=== PATIENT | female | born 1970 | race Caucasian/White ===

== ENCOUNTER 2018-12-16 04:44 | Observation (INO) | payer OTHER ==
[~2018-12-16] VITALS: Ht 152.4 cm; Wt 139.0 kg
[2018-12-16 05:20] LABS: BASOPHILS ABSOLUTE AUTO 0.03 K/mm3 (0.00-0.23); BASOPHILS PERCENT AUTO 0 % (0-2); EOSINOPHILS PERCENT AUTO 0 % (0-6); Hematocrit 42.4 % (33.0-51.0); Hemoglobin 14.2 g/dL (11.5-16.0); IMMATURE GRAN ABSOLUTE AUTO 0.11 K/mm3 (0.00-0.10); IMMATURE GRAN PERCENT AUTO 1 % (0-1); LYMPHOCYTES ABSOLUTE AUTO 1.29 K/mm3 (0.84-5.20); LYMPHOCYTES PERCENT AUTO 9 % (21-46); MONOCYTES ABSOLUTE AUTO 0.66 K/mm3 (0.16-1.47); MONOCYTES PERCENT AUTO 5 % (4-13); Mean Corpuscular HGB Conc 33.5 g/dL (31.5-36.5); Mean Corpuscular Volume 87 fL (80-100); NEUTROPHILS ABSOLUTE AUTO 12.39 K/mm3 (1.96-9.15); NEUTROPHILS PERCENT AUTO 86 % (41-73); Platelet Count 331 K/mm3 (150-400); RDW Coefficient Variation 12.3 % (11.7-14.2); RDW Standard Deviation 38.8 fL (35.1-46.3); White Blood Cell Count 14.48 K/mm3 (4.00-11.30)
[2018-12-16 05:43] LABS: Albumin, Blood 4.2 g/dL (3.4-5.0); Albumin/Globulin Ratio 1.1 (0.8-1.8); Bun/Creatinine Ratio 25.7 (12.0-20.0); Calcium, Blood 9.8 mg/dL (8.5-10.1); Creatinine, Blood 1.13 mg/dL (0.40-1.00); Globulin, Blood 3.8 g/dL (2.2-4.0)
[2018-12-16 06:02] LABS: Source, Urine Clean Catch
[2018-12-16 06:10] LABS: Bilirubin, Urine Neg (Neg); Blood, Urine 2+ (Neg); Glucose Qualitative, Urine 4+ (Neg); Ketones, Urine 4+ (Neg); Leukocyte Esterase, Urine Neg (Neg); Nitrite, Urine Neg (Neg); Protein, Urine 2+ (Neg); Urobilinogen, Urine NORM (Normal)
[2018-12-16 06:15] LABS: Appearance, Urine Hazy (Clear); Color, Urine Yellow (P-Yellow)
[2018-12-16 06:17] LABS: Bacteria Rare /hpf; Squamous Epithelial Cells Few /hpf (Few); White Blood Cells, Urine 0-2 /hpf (0-5)
[2018-12-16 06:19] LABS: Yeast/Fungi Urine Rare /hpf
--- NOTE | 2018-12-16 07:51 | NUR ---
CALLED AND RECIEVED PHONE REPORT FROM ED RN TYLER. PER REPORT PT ALERT, ORIENTED AND INDEPENDENT. ADMITED N/V/D. PT HERE VISITING FAMILY, NOT USING INSULIN ORDERED, BUT IS TAKING METFORMIN. Hx OF KIDNEY STONES AND DIABETES.
[2018-12-16] MEDS ORDERED: METF500 PO (08:25)
--- NOTE | 2018-12-16 08:33 | NUR ---
ASSUMED CARE OF PT- PT ARRIVED FROM ED, C/O NAUSEA, RECIEVED MORPHINE, LR, INSULIN, PHENEGREN AND ZOFRAN IN THE ED. SPOKE TO DR SILVA AND RECIEVED A NEW ORDER FOR ADA DIET FOR LUNCH PT NPO UNTIL THAT TIME.
--- NOTE | 2018-12-16 10:30 | NUR ---
CALL FROM TELE- RECIEVED CALL FROM TELE PT HR RUNNING 133 AND HOLDING. PT WAS DISCOVERED TO BE UP IN THE BATHROOM AT THE TIME HR INCREASED TO 138. STAFF HAD PT LAY FLAT IN BED, FINANCIAL SECRETARY IS DOING VITALS NOW. CALLED TELE HR TRENDING BACK DOWN NSR AT 98.
[2018-12-16] MEDS ORDERED: Desyrel150 MG PO (12:17)
[2018-12-16] MEDS ORDERED: TIZANIDINE HCL4 MG PO (12:18)
[2018-12-16] MEDS ORDERED: SERT50 PO (12:18)
[2018-12-16] MEDS ORDERED: LAMO100 PO (12:18)
[2018-12-16] MEDS ORDERED: Lisinopril2.5 MG PO (12:19)
[2018-12-16 13:56] LABS: Adenovirus F 40/41 Not Detected (NOT DETECT); Astrovirus Not Detected (NOT DETECT); Campylobacter Sp Not Detected (NOT DETECT); Cryptosporidium Not Detected (NOT DETECT); Cyclospora Cayetanensis Not Detected (NOT DETECT); E. Coli O157 Not Detected (NOT DETECT); Entamoeba Histolytica Not Detected (NOT DETECT); Enteroaggregative E. coli-EAEC Not Detected (NOT DETECT); Enteropathogenic E. coli-EPEC Not Detected (NOT DETECT); Enterotoxigenic E. coli-ETEC Not Detected (NOT DETECT); Giardia Lamblia Not Detected (NOT DETECT); Norovirus GI/GII Not Detected (NOT DETECT); Plesiomonas Shigelloides Not Detected (NOT DETECT); Rotavirus A Not Detected (NOT DETECT); Salmonella Sp Not Detected (NOT DETECT); Sapovirus Not Detected (NOT DETECT); Shiga Toxin-prod E. coli-STEC Not Detected (NOT DETECT); Shigella/Enteroin E. coli-EIEC Not Detected (NOT DETECT); Vibrio Cholerae Not Detected (NOT DETECT); Vibrio Sp Not Detected (NOT DETECT); Yersinia Enterocolitica Not Detected (NOT DETECT)
[2018-12-16 14:14] LABS: Anion Gap 5 mmol/L (6-16); Blood Urea Nitrogen 23 mg/dL (8-24); Bun/Creatinine Ratio 27.2 (12.0-20.0); CO2, Blood 26 mmol/L (21-32); Calcium, Blood 8.4 mg/dL (8.5-10.1); Chloride, Blood 111 mmol/L (98-108); Creatinine, Blood 0.85 mg/dL (0.40-1.00); Glomerular Filtration Rate >60 (60-); Glucose, Blood 141 mg/dL (70-99); Potassium, Blood 3.1 mmol/L (3.5-5.5); Sodium, Blood 142 mmol/L (136-145)
[2018-12-16 14:25] LABS: Magnesium, Blood 1.3 mg/dL (1.6-2.4); Phosphorus, Blood 1.5 mg/dL (2.5-4.9)
--- NOTE | 2018-12-16 19:34 | NUR ---
SHIFT SUMMARY- PT ADMITTED FOR N/V/D. PT HAS HAD NAUSEA, VOMITING AND DIARRHEA SINCE ADMIT. STOOL AND URINE SAMPLE SENT TO THE LAB. PT HAS AN 18G IV IN THE LEFT AC THAT IS POSSITIONAL CONCURRENTLY RUNNING NS AT 150 AND K RIDER AT 30, PT WAS UNABLE TO TOLLERATE THE RATE OF 50ML PER HOUR THAT IS ORDERED. NIGHT RN IS AWARE. BEDSIDE REPORT COMPLETED WITH NIGHT RN LEON. PT ALERT ORIENTED AND INDEPENDENT TO THE BEDSIDE COMODE. PT CALLS APPROPRIATELY. PT COMPLETED A 2G DOSE OF IV MAG JUST PRIOR TO SHIFT CHANGE. SEE EMAR FOR DETAILS. PT RECIEVED A TOTAL OF TWO 1L NS BOLUS TODAY, THE SECOND WAS PER VERBAL ORDER FROM DR SILVA. PT WAS VERY SHAKEY WITH NOTABLE TREMMORS THIS AFTERNOON, ONCE MAG RIDER WAS COMPLETED SHE APPEARS MORE RELAXED. MEDICATED WITH TYLENOL TWICE FOR HEADACHE. PT LAYING IN BED WITH PILLOWS FOR COMFORT AND CALL LIGHT IN REACH.
[2018-12-17 04:54] LABS: Hematocrit 35.8 % (33.0-51.0); Mean Corpuscular HGB 29.1 pg (26.0-34.0); Mean Corpuscular HGB Conc 33.5 g/dL (31.5-36.5); Mean Corpuscular Volume 87 fL (80-100); Mean Platelet Volume 9.6 fL (9.1-12.4); Platelet Count 255 K/mm3 (150-400); RDW Coefficient Variation 12.5 % (11.7-14.2); Red Blood Cell Count 4.12 M/mm3 (3.80-5.20); White Blood Cell Count 11.42 K/mm3 (4.00-11.30)
[2018-12-17 05:12] LABS: Anion Gap 5 mmol/L (6-16); Blood Urea Nitrogen 14 mg/dL (8-24); Bun/Creatinine Ratio 18.8 (12.0-20.0); CO2, Blood 25 mmol/L (21-32); Calcium, Blood 8.1 mg/dL (8.5-10.1); Chloride, Blood 112 mmol/L (98-108); Creatinine, Blood 0.75 mg/dL (0.40-1.00); Glomerular Filtration Rate >60 (60-); Glucose, Blood 131 mg/dL (70-99); Potassium, Blood 3.8 mmol/L (3.5-5.5); Sodium, Blood 142 mmol/L (136-145)
[2018-12-17 05:32] LABS: Alanine Aminotransfer (ALT/SGP 30 U/L (12-78); Albumin, Blood 3.3 g/dL (3.4-5.0); Albumin/Globulin Ratio 1.2 (0.8-1.8); Alk Phos 82 U/L (50-136); Anion Gap 7 mmol/L (6-16); Aspartate Aminotrans (AST/SGOT 21 U/L (12-37); Bilirubin, Total 1.1 mg/dL (0.1-1.0); Blood Urea Nitrogen 14 mg/dL (8-24); Bun/Creatinine Ratio 19.3 (12.0-20.0); CO2, Blood 24 mmol/L (21-32); Calcium, Blood 8.1 mg/dL (8.5-10.1); Chloride, Blood 112 mmol/L (98-108); Creatinine, Blood 0.73 mg/dL (0.40-1.00); Globulin, Blood 2.8 g/dL (2.2-4.0); Glomerular Filtration Rate >60 (60-); Glucose, Blood 132 mg/dL (70-99); Phosphorus, Blood 2.6 mg/dL (2.5-4.9); Potassium, Blood 3.9 mmol/L (3.5-5.5); Sodium, Blood 143 mmol/L (136-145); Total Protein, Blood 6.1 g/dL (6.4-8.2)
--- NOTE | 2018-12-17 05:48 | NUR ---
SHIFT SUMMARY PATIENT COMPLAINING OF HEADACHE NOT HELPED BY PRESCRIBED TYLENOL AT BEGINNING OF SHIFT. SPOKE TO EVENT MANAGEMENT CONSULTANT PHYSICIAN AND RECEIVED ORDER FOR TYLENOL3. PATIENT RECEIVED MEDICATION AND ALONG WITH NAUSEA MEDICATION. PATIENT THEN FELL ASLEEP. POTASSIUM CHLORIDE GIVEN VIA IV AND THEN POTASSIUM PHOSPHATE IV STARTED. PATIENT AWOKE AT APPROXIMATELY 0530 WITH COMPLAINTS OF "CLAMMINESS" AND A "KNOT" IN HER STOMACH. PATIENT REQUESTED NAUSEA MEDICATION AND PAIN MEDICATION WITH COMPLAINTS OF A HEADACHE. PATIENT WAS GIVEN 8MG OF ZOFRAN AND TYLENOL#3. PATIENT LEFT TYLENOL#3 ON HER BEDSIDE TABLE AND WHEN ASKED BY RN ABOUT TAKING THE PILL SHE STATED THAT THE "KNOT" IN HER STOMACH WAS WORSE AND SHE FELT THAT IF SHE ATTEMPTED TO SWALLOW ANYTHING SHE WOULD VOMIT IT UP. RN HAS NOT WITNESSED PATIENT VOMITING AT THIS POINT. PATIENT APPEARS VERY ANXIOUS AND WHEN ASKED IF SHE TAKES SOMETHING FOR ANXIETY SHE STATES "YES" BUT CAN NOT TELL RN WHAT MEDICATION. PATIENT AFEBRILE AT 97.1 HEART RATE 74 SPO2 99% ON RA BP 170/86. PATIENT ON EXAM APPEARS TO BE HYPERVENTILATING AND IS SHAKING HER LEGS AND APPEARS TO BE IN A PANIC. RN INSTRUCTED PATIENT TO TAKE SLOW DEEP BREATHS BUT PATIENT STATES SLOWING DOWN HER BREATHING WILL CAUSE "KNOT" IN STOMACH TO WORSEN. PATIENT VERY AGITATED AT THIS TIME AND STATES "WHY ARENT THEY DOING ANYTHING TO MAKE ME BETTER?" RN WILL CALL PHYSICIAN
--- NOTE | 2018-12-17 06:25 | NUR ---
called physician but received no answer. spoke with chargeback analyst about patient symptoms. CAPTION WRITER REVEIWING CHART.
--- NOTE | 2018-12-17 07:21 | NUR ---
RECEIVED CALL BACK FROM PHYSICIAN AND RECEIVED ORDER FOR 0.5 ATIVAN IV ONCE. REPORT GIVEN TO MARIA R JOINER. IV ATIVAN GIVEN TO PATIENT. PATIENT APPEARS LESS ANXIOUS DURING BEDSIDE REPORT.
[2018-12-17] MEDS ORDERED: Cymbalta60 MG PO (09:28)
[2018-12-17] MEDS ORDERED: Mobic15 MG PO (09:29)
--- NOTE | 2018-12-17 12:37 | NUR ---
PT SLEEPING SOUNDLY AT THIS TIME, WAKES BRIEFLY WHEN STAFF SPEAK WITH HER BUT GOES BACK TO SLEEP. PT HAD REQUESTED SLEEPING MEDICATION EARLIER IN THE SHIFT BECAUSE SHE "JUST WANT TO SLEEP TODAY." SHE FEELS THAT IF SHE GOES TO SLEEP FOR THE DAY SHE WILL WAKE FEELING BETTER.
--- NOTE | 2018-12-17 19:52 | NUR ---
SHIFT SUMMARY- PT TOOK A FULL SHOWER THIS EVENING. PT PAIN SEEMS WELL MANAGED WITH THE IV FENTNYL. PT ALERT AND ORIENTED AND INDEPENDENT TO THE BEDSIDE COMODE. IVF RUNNING IN LEFT AC IV. MEDICATED FOR PAIN PRIOR TO SHIFT CHANGE, BEDSIDE REPORT COMPLETE WITH NIGHT MARIA R MELO
--- NOTE | 2018-12-18 04:35 | NUR ---
SHIFT SUMMARY PT. A&O, INDEPENDENT TO BSC. C/O PAIN AND NAUSEA X2 DURING SHIFT. MEDICATED PER EMAR, PT. TOLERATED WELL. RESTED T/O THE REST OF THE NIGHT. IVF RUNNING, NO APPARENT DISTRESS NOTED. CALL LIGHT WITHIN REACH AND SIDE RAILS UP X2. WILL CONT TO MONITOR.
[2018-12-18 05:06] LABS: Albumin, Blood 3.1 g/dL (3.4-5.0); Anion Gap 4 mmol/L (6-16); Blood Urea Nitrogen 13 mg/dL (8-24); Bun/Creatinine Ratio 15.9 (12.0-20.0); CO2, Blood 26 mmol/L (21-32); Calcium, Blood 8.1 mg/dL (8.5-10.1); Chloride, Blood 111 mmol/L (98-108); Creatinine, Blood 0.82 mg/dL (0.40-1.00); Glomerular Filtration Rate >60 (60-); Glucose, Blood 182 mg/dL (70-99); Phosphorus, Blood 1.9 mg/dL (2.5-4.9); Potassium, Blood 3.9 mmol/L (3.5-5.5); Sodium, Blood 141 mmol/L (136-145)
--- NOTE | 2018-12-18 07:42 | NUR ---
ASSUMED CARE OF PT- BEDSIDE REPORT COMPLETED WITH NIGHT RN DELONTE. PER REPORT (AND PT) PT IS HAVING ANXIETY, PT STATES SHE FEELS LIKE SHE IS "SUPER SHAKEY" AND FEELS LIKE HER CHEST IS TIGHT (INDICATING MID STERNAL) PT HAS EPIGASTRIC PAIN THAT IS NOT WELL MANAGED THIS MORNING, SHE IS REQUESTING PAIN MEDICATION AT SHIFT CHANGE HOWEVER IT IS NOT AVAILABLE UNTIL 0800. PT IS REQUESTING SOMETHING PRN FOR ANXIETY. WILL SPEAK TO THE HOSPITALIST THIS MORNING. CALLED TELE PT HER NSR AT 78 WITH NO EVENTS.
--- NOTE | 2018-12-18 10:04 | NUR ---
CALLED DR SILVA- PT HAS C/O ANXIETY AND IS REQUESTING SOME FORM OF ANXIETY MEDICINE. PT IVF WAS DC'D AND POTASSIUM PHOSPHATE WAS STARTED, PT NOT TOLLERATING WELL RATE SLOWED TO HALF D/T PAIN IN THE PT IV. WAITING FOR A CALL BACK TO REQUEST NS IVF TO RUN CONCURRENTLY WITH POTASSIUM PHOSPHATE SO RATE MAY BE INCREASED BACK TO THE ORDERED RATE.
--- NOTE | 2018-12-18 11:30 | NUR ---
DR SILVA IN TO SEE THE PT- VERBAL ORDER FOR IVF TO RUN CONCURRENTLY WITH POTASSIUM PHOSPHATE. PT REQUESTED PAIN MEDS AND ANXIETY MEDS DR SILVA WILL PUT THE ORDER IN. NO ORDER RECIEVED AT THIS TIME.
--- NOTE | 2018-12-18 20:05 | NUR ---
SHIFT SUMMARY- PT SEEMS TO HAVE HER PAIN WELL MANAGED THIS EVENING, WITH IV REGLAN AND PAIN MEDS PRIOR TO DINNER SHE ATE ALL OF HER CLEAR LIQUID TRAY AND SOME SALTINES. SHE HAS AN ORDER TO ADVANCE DIET TOLLERATED. WILL CHANGE DIET ORDER TO FULL LIQUID FOR BREAKFAST TOMORROW. PT ALERT AND ORIENTED AND INDEPENDENT.
--- NOTE | 2018-12-19 03:46 | NUR ---
SHIFT SUMMARY PT. ASLEEP ALL NIGHT, PAIN WELL MANAGED T/O THE SHIFT. NO C/O NAUSEA, EARLIER IN THE EVENING REQUESTED TO HAVE A SANDWICH TO EAT. ORDER TO ADVANCE DIET TOLERATED. PT. ATE SALTINE CRACKERS AND SEVERAL POPSICLES. TOLERATED WELL. CALL LIGHT WITHIN REACH AND SIDE RAILS UP X2. WILL CONT TO MONITOR.
[2018-12-19 05:04] LABS: Albumin, Blood 2.8 g/dL (3.4-5.0); Anion Gap 5 mmol/L (6-16); Blood Urea Nitrogen 10 mg/dL (8-24); Bun/Creatinine Ratio 11.8 (12.0-20.0); CO2, Blood 27 mmol/L (21-32); Calcium, Blood 8.1 mg/dL (8.5-10.1); Chloride, Blood 111 mmol/L (98-108); Creatinine, Blood 0.85 mg/dL (0.40-1.00); Glomerular Filtration Rate >60 (60-); Glucose, Blood 163 mg/dL (70-99); Phosphorus, Blood 2.8 mg/dL (2.5-4.9); Potassium, Blood 3.6 mmol/L (3.5-5.5); Sodium, Blood 143 mmol/L (136-145)
[2018-12-19] MEDS ORDERED: MORP30 PO (08:57)
[2018-12-19] MEDS ORDERED: INSULANPEN SC (09:05)
--- NOTE | 2018-12-19 12:23 | NUR ---
PT REPORTED THIS AM THAT SHE TAKES SHORT ACTING MORPHINE PRN AT HOME THROUGH A PAIN SPECIALIST IN [place]. CALLED STEPHANIE IN [facility] AND CONFIRMED PT TAKES SHORT ACTING MORPHINE 15MG PO Q4-6HRS NEEDED AND HAS BEEN RECEIVING THIS FOR QUITE SOME TIME. PT ALSO REPORTS HER LONG ACTING INSULIN SHE GETS THROUGH HER PRIMARY A SAMPLE DUE TO HIGH COST FROM PHARMACY, HER INSULIN IN ON HER HUSBANDS TRUCK IN WHICH HE IS IN [place] AT THIS TIME. PER DR RICARDO CADENA TO SEND INSULINS HOME WITH PT.
[2018-12-19] MEDS ORDERED: HUMALOG KW200 UNIT/1 SC (12:37)
[2018-12-19] MEDS ORDERED: METO5A PO (12:37)
[2018-12-19] MEDS ORDERED: ONDA4ODT MM (12:37)
--- NOTE | 2018-12-19 12:39 | NUR ---
PT'S PCP IS IN [place] UNABLE TO SCHEDULE A FOLLOW UP APPOINTMENT OR SEND A REFFERAL. HARD SCHRIPT FOR MORPHINE GIVEN. HUMALOG AND LANTUS PENS SENT WITH PT PER DR SILVA.
--- NOTE | 2018-12-19 13:04 | NUR ---
DISCHARGE INSTRUCTIONS REVIEWED WITH PT. OV DC'D INTACT. MEDS FAXED TO [facility]. PT GETTING DRESSING AND WAITING FOR RIDE AT THIS TIME.
--- NOTE | 2018-12-19 13:36 | NUR ---
PT DISCHARGED HOME AT 1337.
== END 2018-12-19 13:56 | disposition home or self-care (01) ==
LOC: ER 04:44 → MEDS 06:44 → ENPENDDIS 12-19 11:46 → MEDS 12-19 13:56
PROVIDERS: Emergency Medicine; Internal Medicine; ADMIT Internal Medicine
DX: E11.10 Type 2 diabetes mellitus with ketoacidosis without coma (principal); E11.65 Type 2 diabetes mellitus with hyperglycemia; K52.9 Noninfective gastroenteritis and colitis, unspecified; E87.2 Acidosis; E86.0 Dehydration; E83.39 Other disorders of phosphorus metabolism; E83.42 Hypomagnesemia; E87.6 Hypokalemia; F32.9 Major depressive disorder, single episode, unspecified; F41.9 Anxiety disorder, unspecified; M54.30 Sciatica, unspecified side; Z87.442 Personal history of urinary calculi
CPT/HCPCS: 36415; 74176; 80048; 80053; 80069; 81001; 82010; 82947; 83036; 83690; 83735; 84100; 85025; 85027; 87177; 87209; 87507; 96361; 96372; 96374; 96375; 96376; 99285-25; A9270; C9113; G0378; J1650; J1815; J2060; J2270; J2405; J2550; J2765; J3010; J3475; J3480; J7030; J7060; J7120

== ENCOUNTER 2019-01-30 21:11 | Emergency (ER) | payer OTHER ==
[~2019-01-30] VITALS: Ht 160 cm; Wt 56.7 kg
[~2019-01-30 21:11] MED LIST: Cymbalta60 MG PO; Desyrel150 MG PO; HUMALOG KW200 UNIT/1 SC; INSULANPEN SC; LAMO100 PO; Lisinopril2.5 MG PO; METF500 PO; METO5A PO; MORP30 PO; Mobic15 MG PO; ONDA4ODT MM; SERT50 PO; TIZANIDINE HCL4 MG PO
[2019-01-30 21:20] LABS: Calcium, Ionized (POC) 1.09 mmol/L (1.10-1.46); Chloride (POC) 104 mmol/L (98-108); Creatinine (POC) 1.3 mg/dL (0.6-1.0); Glucose (ISTAT POC) 249 mg/dL (70-99); Hemoglobin (POC) 10.5 g/dL (12.0-16.0); Potassium (POC) 4.3 mmol/L (3.5-5.5); Sodium (POC) 139 mmol/L (135-148); Total CO2 (POC) 28 mmol/L (21-32)
[2019-01-30 21:34] LABS: BASOPHILS ABSOLUTE AUTO 0.04 K/mm3 (0.00-0.23); BASOPHILS PERCENT AUTO 1 % (0-2); EOSINOPHILS ABSOLUTE AUTO 0.37 K/mm3 (0.00-0.68); EOSINOPHILS PERCENT AUTO 6 % (0-6); Hematocrit 32.4 % (33.0-51.0); Hemoglobin 10.3 g/dL (11.5-16.0); IMMATURE GRAN ABSOLUTE AUTO 0.01 K/mm3 (0.00-0.10); IMMATURE GRAN PERCENT AUTO 0 % (0-1); LYMPHOCYTES PERCENT AUTO 41 % (21-46); MONOCYTES ABSOLUTE AUTO 0.65 K/mm3 (0.16-1.47); MONOCYTES PERCENT AUTO 10 % (4-13); Mean Corpuscular HGB 28.7 pg (26.0-34.0); Mean Corpuscular HGB Conc 31.8 g/dL (31.5-36.5); Mean Corpuscular Volume 90 fL (80-100); Mean Platelet Volume 9.8 fL (9.1-12.4); NEUTROPHILS ABSOLUTE AUTO 2.75 K/mm3 (1.96-9.15); NEUTROPHILS PERCENT AUTO 42 % (41-73); Platelet Count 234 K/mm3 (150-400); RDW Coefficient Variation 12.4 % (11.7-14.2); RDW Standard Deviation 41.1 fL (35.1-46.3); Red Blood Cell Count 3.59 M/mm3 (3.80-5.20); White Blood Cell Count 6.52 K/mm3 (4.00-11.30)
[2019-01-30 21:51] LABS: Acetaminophen, Random <2.0 ug/mL (10.0-30.0); Alanine Aminotransfer (ALT/SGP 25 U/L (12-78); Albumin, Blood 3.2 g/dL (3.4-5.0); Albumin/Globulin Ratio 1.1 (0.8-1.8); Alk Phos 83 U/L (50-136); Anion Gap 3 mmol/L (6-16); Aspartate Aminotrans (AST/SGOT 15 U/L (12-37); Bilirubin, Total 0.2 mg/dL (0.1-1.0); Blood Urea Nitrogen 19 mg/dL (8-24); Bun/Creatinine Ratio 17.1 (12.0-20.0); CO2, Blood 30 mmol/L (21-32); Calcium, Blood 7.9 mg/dL (8.5-10.1); Chloride, Blood 109 mmol/L (98-108); Creatinine, Blood 1.11 mg/dL (0.40-1.00); Ethanol (Alcohol), Blood, Med <3 mg/dL; Glomerular Filtration Rate 56 (60-); Glucose, Blood 248 mg/dL (70-99); Potassium, Blood 4.4 mmol/L (3.5-5.5); Salicylate <1.7 mg/dL (2.8-20.0); Sodium, Blood 142 mmol/L (136-145); Total Protein, Blood 6.2 g/dL (6.4-8.2)
[2019-01-30] MEDS ORDERED: Atarax10 MG PO (22:16)
[2019-01-30] MEDS ORDERED: Lamictal200 MG (22:17)
[2019-01-30] MEDS ORDERED: METF500 PO (22:17)
[2019-01-30] MEDS ORDERED: LISI5 PO (22:17)
[2019-01-30] MEDS ORDERED: MORP10S (22:17)
[2019-01-30] MEDS ORDERED: Pyridium200 MG (22:18)
[2019-01-30] MEDS ORDERED: ATORVASTATIN CA10 MG PO (22:18)
[2019-01-30] MEDS ORDERED: DULO60 PO (22:18)
[2019-01-30] MEDS ORDERED: TRAZ50 PO (22:18)
[2019-01-30] MEDS ORDERED: Zoloft50 MG PO (22:18)
[2019-01-31 00:06] LABS: Source, Urine Clean Catch
[2019-01-31 00:12] LABS: Bilirubin, Urine Neg (Neg); Blood, Urine Neg (Neg); Glucose Qualitative, Urine 4+ (Neg); Ketones, Urine 1+ (Neg); Leukocyte Esterase, Urine 3+ (Neg); Nitrite, Urine Neg (Neg); Protein, Urine 1+ (Neg); Urobilinogen, Urine NORM (Normal)
[2019-01-31 00:22] LABS: Appearance, Urine Hazy (Clear); Color, Urine Yellow (P-Yellow)
[2019-01-31 00:23] LABS: Amorphous Light (0-Heavy); Bacteria Mod /hpf; Hyaline Casts 25-50 /lpf (0-2); Red Blood Cells, Urine Not Seen /hpf (0-2); Squamous Epithelial Cells Mod /hpf (Few); White Blood Cells, Urine TNTC /hpf (0-5)
[2019-01-31 00:26] LABS: U Amphetamine Screen Not Detected; U Barbituate Screen Not Detected; U Benzodiazapine Screen DETECTED; U Buprenorphine Screen Not Detected; U Cannabinoids Screen Not Detected; U Cocaine Screen Not Detected; U Methadone Screen Not Detected; U Methamphetamine Screen Not Detected; U Opiates Screen DETECTED; U Oxycodone Screen Not Detected; U Phencyclidine Screen DETECTED; U Propoxyphene Screen Not Detected
== END 2019-01-31 03:20 | disposition home or self-care (01) ==
LOC: ER 21:11
PROVIDERS: Emergency Medicine
DX: R41.82 Altered mental status, unspecified (principal); Z79.899 Other long term (current) drug therapy; Z79.4 Long term (current) use of insulin; E11.9 Type 2 diabetes mellitus without complications; I10 Essential (primary) hypertension
CPT/HCPCS: 70450; 72125; 80047; 80053; 81001; 81025; 83735; 84439; 84443; 85014; 85025; 87077; 87086; 87186; 93005; 93010; 96361; 96374; 96375; 99285-25; G0480; J2310; J2405; J7030

== ENCOUNTER → 2019-01-31 | Outpatient (CLI) | payer OTHER ==
[~2019-01-31] MED LIST changes: +ATORVASTATIN CA10 MG PO; +Atarax10 MG PO; +DULO60 PO; +LISI5 PO; +Lamictal200 MG; +MORP10S; +Pyridium200 MG; +TRAZ50 PO; +Zoloft50 MG PO
[2019-01-31 13:13] LABS: BASOPHILS ABSOLUTE AUTO 0.04 K/mm3 (0.00-0.23); BASOPHILS PERCENT AUTO 1 % (0-2); EOSINOPHILS ABSOLUTE AUTO 0.39 K/mm3 (0.00-0.68); EOSINOPHILS PERCENT AUTO 5 % (0-6); Hematocrit 33.3 % (33.0-51.0); Hemoglobin 10.9 g/dL (11.5-16.0); IMMATURE GRAN ABSOLUTE AUTO 0.01 K/mm3 (0.00-0.10); IMMATURE GRAN PERCENT AUTO 0 % (0-1); LYMPHOCYTES ABSOLUTE AUTO 2.29 K/mm3 (0.84-5.20); LYMPHOCYTES PERCENT AUTO 31 % (21-46); MONOCYTES ABSOLUTE AUTO 0.54 K/mm3 (0.16-1.47); MONOCYTES PERCENT AUTO 7 % (4-13); Mean Corpuscular HGB 29.3 pg (26.0-34.0); Mean Corpuscular HGB Conc 32.7 g/dL (31.5-36.5); Mean Corpuscular Volume 90 fL (80-100); Mean Platelet Volume 9.7 fL (9.1-12.4); NEUTROPHILS ABSOLUTE AUTO 4.13 K/mm3 (1.96-9.15); NEUTROPHILS PERCENT AUTO 56 % (41-73); Platelet Count 252 K/mm3 (150-400); RDW Coefficient Variation 12.4 % (11.7-14.2); RDW Standard Deviation 40.8 fL (35.1-46.3); Red Blood Cell Count 3.72 M/mm3 (3.80-5.20)
[2019-01-31 13:22] LABS: Calcium, Blood 8.5 mg/dL (8.5-10.1); Potassium, Blood 4.8 mmol/L (3.5-5.5)
== END | disposition home or self-care (01) ==
LOC: LAB EV 13:07 → LAB SHORT 13:07
PROVIDERS: Physician Assistant Surgical
DX: F44.89 Other dissociative and conversion disorders (principal)
CPT/HCPCS: 80048; 85025

== ENCOUNTER 2019-06-27 11:25 | Emergency (ER) | payer OTHER ==
[~2019-06-27] VITALS: Ht 152.4 cm; Wt 59.0 kg
[2019-06-27 12:27] LABS: BASOPHILS ABSOLUTE AUTO 0.04 K/mm3 (0.00-0.23); BASOPHILS PERCENT AUTO 0 % (0-2); EOSINOPHILS ABSOLUTE AUTO 0.02 K/mm3 (0.00-0.68); EOSINOPHILS PERCENT AUTO 0 % (0-6); Hematocrit 40.1 % (33.0-51.0); Hemoglobin 13.4 g/dL (11.5-16.0); IMMATURE GRAN ABSOLUTE AUTO 0.04 K/mm3 (0.00-0.10); IMMATURE GRAN PERCENT AUTO 0 % (0-1); LYMPHOCYTES ABSOLUTE AUTO 1.89 K/mm3 (0.84-5.20); LYMPHOCYTES PERCENT AUTO 17 % (21-46); MONOCYTES PERCENT AUTO 4 % (4-13); Mean Corpuscular HGB 29.3 pg (26.0-34.0); Mean Corpuscular HGB Conc 33.4 g/dL (31.5-36.5); Mean Corpuscular Volume 88 fL (80-100); Mean Platelet Volume 9.8 fL (9.1-12.4); NEUTROPHILS ABSOLUTE AUTO 8.93 K/mm3 (1.96-9.15); NEUTROPHILS PERCENT AUTO 79 % (41-73); Platelet Count 330 K/mm3 (150-400); RDW Coefficient Variation 11.5 % (11.7-14.2); RDW Standard Deviation 37.1 fL (35.1-46.3); Red Blood Cell Count 4.57 M/mm3 (3.80-5.20); White Blood Cell Count 11.32 K/mm3 (4.00-11.30)
[2019-06-27 12:49] LABS: Alanine Aminotransfer (ALT/SGP 65 U/L (12-78); Albumin, Blood 4.1 g/dL (3.4-5.0); Alk Phos 133 U/L (50-136); Anion Gap 10 mmol/L (6-16); Aspartate Aminotrans (AST/SGOT 20 U/L (12-37); Bilirubin, Total 0.5 mg/dL (0.1-1.0); Blood Urea Nitrogen 24 mg/dL (8-24); Bun/Creatinine Ratio 28.3 (12.0-20.0); CO2, Blood 23 mmol/L (21-32); Calcium, Blood 9.7 mg/dL (8.5-10.1); Chloride, Blood 105 mmol/L (98-108); Creatinine, Blood 0.85 mg/dL (0.40-1.00); Glomerular Filtration Rate >60 (60-); Glucose, Blood 338 mg/dL (70-99); Sodium, Blood 138 mmol/L (136-145); Total Protein, Blood 8.1 g/dL (6.4-8.2)
[2019-06-27 13:28] LABS: Source, Urine Clean Catch
[2019-06-27 13:34] LABS: Bilirubin, Urine Neg (Neg); Blood, Urine 2+ (Neg); Glucose Qualitative, Urine 4+ (Neg); Nitrite, Urine Neg (Neg); Protein, Urine 3+ (Neg); Urobilinogen, Urine NORM (Normal)
[2019-06-27 14:03] LABS: Ketones, Urine 2+ (Neg); Leukocyte Esterase, Urine Neg (Neg)
[2019-06-27 14:12] LABS: Appearance, Urine Clear (Clear); Color, Urine Yellow (P-Yellow)
[2019-06-27 14:13] LABS: Bacteria Mod /hpf; Mucus Light (0-Heavy); Squamous Epithelial Cells Few /hpf (Few); White Blood Cells, Urine 0-2 /hpf (0-5)
[2019-06-27] MEDS ORDERED: ONDA4ODT MM (15:18)
[2019-06-27] MEDS ORDERED: RIZATRIPTAN10 MG (15:28)
[2019-06-27] MEDS ORDERED: Ativan1 MG PO (15:28)
[2019-06-27] MEDS ORDERED: Sudogest30 MG (15:29)
[2019-06-27] MEDS ORDERED: AZO CRANBERRY1 EAC1 (15:29)
[2019-06-27] MEDS ORDERED: MAGCHL64ER (15:29)
[2019-06-27] MEDS ORDERED: BASAGLAR K100 UNIT/2 (15:30)
[2019-06-27] MEDS ORDERED: ZOHYDRO ER10 M1 PO (15:30)
== END 2019-06-27 15:40 | disposition home or self-care (01) ==
LOC: ER 11:25
PROVIDERS: Emergency Medicine
DX: E11.65 Type 2 diabetes mellitus with hyperglycemia (principal); R11.2 Nausea with vomiting, unspecified; R10.9 Unspecified abdominal pain; I10 Essential (primary) hypertension; Z91.013 Allergy to seafood; Z79.899 Other long term (current) drug therapy; Z79.4 Long term (current) use of insulin
CPT/HCPCS: 36415; 80053; 81001; 82947; 83690; 85025; 87086; 96361; 96374; 96375; 99284-25; J1815; J1885; J2405; J2550; J7120